=== PATIENT | female | born 1975 | race Caucasian/White ===

== ENCOUNTER → 2017-03-28 | Outpatient (CLI) | payer BC ==
--- NOTE | 2017-03-28 13:14 | MAMMOGRAPHY REPORT ---
BILATERAL DIGITAL DIAGNOSTIC MAMMOGRAM TOMOSYNTHESIS WITH CAD AND TARGETED RIGHT ULTRASOUND: 03/28/2017 CLINICAL HISTORY: Six-month follow-up of right breast calcifications and right breast masses. TECHNIQUE: Breast tomosynthesis in addition to standard 2D mammography was performed. Current study was also evaluated with a Computer Aided Detection (CAD) system. Bilateral CC and MLO 2-D and tomosy nthesis images and spot magnification right cc and ML views were obtained. COMPARISON: Comparison is made to exams dated: 09/27/2016 mammogram, 09/27/2016 ultrasound, 03/28/2016 m ammogram, and 03/14/2016 mammogram - [facility]. BREAST COMPOSITION: The tissue of both breasts is heterogeneously dense, which may obscure small mas ses. FINDINGS: Spot magnification views of the right breast demonstrate a small 2 mm cluster of punctate benign-appearing calcifications in the right upper outer quadrant. The calcifications are stable on spot magnification views dating back to the March 2016 exam, and are considered benign given the long- term stability and benign morphology. The remainder of both breasts are stable compared to prior exa ms, without suspicious masses, calcifications, or areas of architectural distortion noted. Targeted ultrasound was performed of the area of the previously seen masses in the right breast. In the right breast at 9:00, 5 cm from the nipple, there is an oval anechoic circumscribed 10 x 4 x 5 mm mass, consistent with a benign simple cyst. A hypoechoic cystic-appearing mass is also seen in the adjacent right 9:00 breast measuring 5 x 5 mm, not significantly changed. Another oval hypoechoic ci rcumscribed cystic-appearing mass with a thin internal septation is seen within the right breast at 9 :00, 4 cm from the nipple measuring 7 x 6 mm, consistent with a cyst cluster. In the right breast at 10:00 periareolar region there is a round anechoic 5 mm benign simple cyst. In the right breast at 10:00, approximately 3-4 cm from the nipple, there is a cluster of microcysts which measures 7 x 5 x 6 mm, not significantly changed. Findings are benign and consistent with cysts and cyst clusters. N o suspicious masses are noted. IMPRESSION: ACR BI-RADS CATEGORY 2: BENIGN, TARGETED ULTRASOUND ACR BI-RADS CATEGORY 2: BENIGN Small cluster of benign-appearing calcifications in the right upper outer quadrant is stable dating b ack to the March 2016 exam, and considered benign given stability and benign morphology. Benign cysts and cyst clusters again noted within the right 9 to 10:00 breast on ultrasound. There is no mammogr aphic or targeted sonographic evidence of malignancy. A 1 year screening mammogram is recommended. T he patient has been verbally notified of the results. Approximately 10% of breast cancers are not detected with mammography. A negative mammographic report should not delay biopsy if a clinically suggestive mass is present. Anna Chavarria M.D. ah/:03/28/2017 10:42:19 Virtual Classroom Manager: Aleah MONTEIRO(R)(M), [facility] letter sent: Normal 1/2 BI-RADS Code: ACR BI-RADS Category 2: Benign Ultrasound BI-RADS: ACR BI-RADS Category 2: Benign
== END | disposition home or self-care (01) ==
LOC: C.MAMM 07:51
PROVIDERS: ATTEND Nurse Practitioner
DX: R92.0 Mammographic microcalcification found on diagnostic imaging of breast (principal); N60.01 Solitary cyst of right breast